=== PATIENT | female | born 1985 | race Caucasian/White ===

== ENCOUNTER 2016-09-06 10:43 | Emergency (ER) | payer SELFPAY ==
[2016-09-06 10:52] VITALS: TEMP 98.3; BMI 46.0
[2016-09-06] MEDS ORDERED: PROMETHAZINE 25 MG/ML VIAL IV ONE ×2 (11:05→12:01)
[2016-09-06] MEDS ORDERED: MORPHINE 4 MG/ML INJECTION IV ONE (11:05)
[2016-09-06] MEDS ORDERED: NS 1,000 ML IV ONE (11:05)
--- NOTE | 2016-09-06 11:05 | EDPRACDOC ---
- General Information Chief Complaint: Female Urogenital Problems Stated Complaint: RT FLANK PAIN Time Seen by Provider: 09/06/16 10:56 Mode Of Arrival: Car Home Medications: Home Medications Citalopram Hydrobromide [Celexa] 40 mg PO DAILY 11/14/15 Ibuprofen Tablet [Advil] 800 mg PO Q8H PRN 11/14/15 Metformin HCl 500 mg PO DAILY 11/14/15 Promethazine [Phenergan] 25 mg PO Q6H PRN #10 tab 06/16/16 Ketoprofen 50 mg PO BID PRN #20 capsule 06/24/16 Promethazine Dextromethorphan [Phenergan DM] 5 ml PO Q6 PRN #120 ml 06/24/16 Promethazine HCl [Phenergan] 12.5 mg PO Q6 #30 tablet 06/24/16 Hydrocodone/Acetaminophen [Lortab 5-325 mg Tablet] 1 each PO Q4H PRN #15 tablet 07/23/16 Metronidazole [Flagyl] 500 mg PO BID #14 tab 07/23/16 Hydrocodone Bit/Acetaminophen [[place] 5-325 Tablet] 1 - 2 tabs PO Q6H PRN #15 tab 08/13/16 Promethazine [Phenergan] 25 mg PO Q8H PRN #15 tab 08/13/16 Ibuprofen Tablet [Motrin] 800 mg PO TID PRN #30 tab 09/06/16 Allergies/Adverse Reactions: Allergies Allergy/AdvReac Type Severity Reaction Status Date / Time ciprofloxacin [From Cipro] Allergy Difficulty Verified 09/06/16 10:51 Breathing ciprofloxacin HCl Allergy Difficulty Verified 09/06/16 10:51 [From Cipro] Breathing ketorolac [From Toradol] Allergy Nausea/Vomi Verified 09/06/16 10:51 ting tramadol Allergy Nausea/Vomi Verified 09/06/16 10:51 ting - History of Present Illness Onset: YESTERDAY HPI: PT STATES "I THINK I HAVE ANOTHER KIDNEY STONE", COMPLAINS OF SHARP, STABBING PAIN IN RIGHT LOWER ABD AND SUPRAPUBIC AREA, NO FEVER OR CHILLS, HAS HAD N/V, PT FREQUENTLY SEEN IN THE ED FOR SIMILAR COMPLAINTS, ALSO HAS HX OF PCOS. Pain Began: Reports: Spontaneous Pain Location: Reports: Abdomen Pain Severity: Severe Pain Quality: Reports: Sharp, Stabbing : No Oral Intake: Normal Urinary Output: Normal Modifying Factors: worse with: Movement, Twisting, Breathing, Walking, Nothing Relevant History of: Reports: Urolithiasis Associated Signs and Symptoms: Reports: Frequency, Abdominal Pain, Nausea, Vomiting. Denies: Fever, Hematuria, Dysuria ED Past Medical History - History Reviewed Yes Nurses notes reviewed and agree except as marked - Patient Medical History GI/ History: Reports: Kidney Stones Psychological History: Denies: Depression Systemic History: Reports: Cancer (L neck lymph), Diabetes Additional Past Medical History: PCOS, ENDOMETRIOSIS Surgical History: Reports: Cholecystectomy, Other (URETERAL STENTS) - Social Medical History Smoking Status: Never smoker ETOH: None Substance Abuse: None EDM Review of Systems - Review of Systems Constitutional: negative: Chills, Fever Eyes: negative: Blurred Vision, Double Vision Ears: negative: Drainage Throat: negative: Pain Nose: negative: Congestion, Discharge Respiratory: negative: Cough, Shortness of Breath, Wheezing Cardiovascular: negative: Chest Pain, Palpitations Gastrointestinal: Nausea, Pain, Vomiting. negative: Diarrhea Genitourinary: Dysuria, Frequency Neurological: negative: Dizziness, Headache, Numbness, Weakness Musculoskeletal: No Symptoms Reported Integumentary: No Symptoms Reported - Physical Exam Constitutional: Alert (Awake), No apparent distress Oriented to: Time, Person, Place Last recorded Vital Signs: Last Vital Signs Temp 98.3 F 09/06/16 10:46 Pulse 97 09/06/16 10:46 Resp 18 09/06/16 10:46 BP 192/91 H 09/06/16 10:46 Pulse Ox 100 09/06/16 10:46 Oxygen Pulse Oxygen Saturation 100 O2 Device Room Air Oxygen Flow Rate Fraction of Inspired Oxygen ( FIO2) - HEENT Head: Normal ( normocephalic) Eye Exam: Normal (PERRL, EOMI, Sclera white) Oropharynx: Normal (Pharynx:Moist without exudate,Gums-no swelling) Tympanic Membrane: Normal ENT EAC: Normal TMJ: Normal Nose: No Symptoms Reported (septum midline) Neck: Normal (FROM, trachea at midline) - Respiratory/Cardiovascular Respiratory: Normal - CTA (BBS clear to auscultation without adventitious sounds ) Cardiovascular: Normal (RRR without murmur, gallop or rub) - GI Auscultation: Normal (NABS) Palpation: Normal (Soft,No rebound or guarding, non distended) Tenderness: Moderate, RLQ, Suprapubic. negative: Guarding, Rebound, Rigidity Smith's Sign: Negative - Musculoskeletal Back: Normal (Non-Tender) Extremities: Normal (Normal tone, Pulses 2+ No cyanosis or edema, FROM) - Integumentary Skin: Normal, Warm, Dry Lymphatics: Normal (no adenopathy) - Neurologic Memory Impaired: Normal Motor Function: Normal (Normal tone, Pulses 2+ No cyanosis or edema, FROM) Cranial Nerve: Normal (CN II-X11 intact sensation, strength 5/5) Cerebellar: Normal Mood Description: Normal Perception: Normal - Differential Diagnosis DJD, HNP, Musculoskeletal pain, Strain, Urolithiasis, Urinary tract infection - Re-evaluation Re-evaluation 1 Re-evaluation Time: 12:01 (NO CHANGE IN PAIN) - Additional Information OLD RECORDS REVIEWED, PT SEEN IN THE ED MULTIPLE TIMES FOR SAME COMPLAINT, MULTIPLE CT SCANS OF ABD/PELVIS (6 IN 2015) ALL HAVE BEEN ESSENTIALLY NON-ACUTE. NC CONTROLLED SUBSTANCE RX HISTORY REVIEWED, PT HAS RECEIVED 29 DIFFERENT NARCOTIC PRESCRIPTIONS FROM 17 DIFFERENT PROVIDERS OVER THE LAST 12 MTHS, MOST ONLY A FEW DAYS APART. PT RECEIVED OXYCODONE AND HYDROCODONE ON 08/01, 08/06, , AND 08/14 FROM 3 DIFFERENT PROVIDERS. Decision Time to Discharge: 12:35 - Departure Disposition: Home Condition: Stable Final Diagnosis: Recurrent abdominal pain, NARCOTIC SEEKING BEHAVIOR Instructions: Abdominal Pain (ED) Education/Counseling Given To: Patient Education/Counseling Given Regarding: Diagnosis, Treatment, Prognosis, Follow Up Referrals: Sandra Gold MD [Staff Physician] - One Week Prescriptions: Ibuprofen Tablet [Motrin] 800 mg PO TID PRN #30 tab PRN Reason: Pain Additional Instructions: REST, DRINK PLENTY OF FLUIDS, YOU MUST FOLLOW UP WITH A PRIMARY CARE PROVIDER FOR FURTHER PAIN MANAGEMENT, THE ED WILL NOT BE MANAGING RECURRENT PAIN PROBLEMS WITH NARCOTIC MEDICATIONS.
[2016-09-06 11:06] LABS: LEUKOCYTES/URINE NEG (NEGATIVE); NITRITE/URINE NEG (NEGATIVE); RBC/URINE TNTC (0-5); URINE OCCULT BLOOD 3+ (NEG/TRACE)
[2016-09-06] MEDS ORDERED: DIPHENHYDRAMINE 50 MG/ML VIAL IV ONE (12:01)
[2016-09-06] MEDS ORDERED: HYDROmorphone 1 MG INJECTION IV ONE (12:01)
[2016-09-06 12:52] VITALS: BP 133/61; PULSE 91
== END 2016-09-06 12:51 | disposition home or self-care (01) ==
LOC: ED 10:43
DX: R10.9 Unspecified abdominal pain (principal); Z76.5 Malingerer [conscious simulation]
CPT/HCPCS: 81001; 81025; 96361; 96374; 96375; 96376; 99284; J1170; J1200; J2270; J2550